=== PATIENT | female | born 1985 | race Caucasian/White ===

== ENCOUNTER 2018-09-27 05:15 | Inpatient (IN) | payer OTHER ==
[2018-09-27 06:03] VITALS: BMI 35.5
[2018-09-27 06:53] LABS: BASO % 0.3 % (0-2.0); EOS % 1.3 % (0-4.5); HEMATOCRIT 31.8 % (32.4-45.2); LYMPH % 26.8 % (8-40); MCH 22.8 pg (25.7-33.7); MCHC 31.5 g/dl (32.0-36.0); MEAN CELL VOLUME 72.5 fl (80-96); MEAN PLT VOLUME 8.7 fl (7.5-11.1); MONO % 10.1 % (3.8-10.2); NEUT % 61.5 % (42.8-82.8); PLATELET COUNT 255 K/MM3 (134-434); RBC 4.39 M/mm3 (3.60-5.2); RDW 15.8 % (11.6-15.6); WHITE BLOOD COUNT 9.7 K/mm3 (4.0-10.0)
[2018-09-27 07:03] LABS: INR 0.91 (0.83-1.09); PROTHROMBIN TIME (PATIENT) 10.7 SEC (9.7-13.0)
[2018-09-27 07:06] LABS: ACTIVATED PTT 27.3 SECONDS (25.2-36.5)
[2018-09-27 07:30] LABS: ANION GAP 9 MMOL/L (8-16); BLOOD UREA NITROGEN 10 mg/dL (7-18); CHLORIDE 106 mmol/L (98-107); CO2 24 mmol/L (21-32); CREATININE 0.5 mg/dL (0.55-1.3); GLUCOSE,RANDOM 73 mg/dL (74-106); POTASSIUM 3.9 mmol/L (3.5-5.1); SODIUM 140 mmol/L (136-145)
--- NOTE | 2018-09-27 17:33 | HP ---
Past Medical History - Primary Care Physician PCP:: Regina Caballero - Admission Chief Complaint: rupture of membranes History of Present Illness: 33 yo P2 AMA EGA 37.5 weeks + GBS and ruptured admitted to LD however refusing IV and IV abs. Pt refusing any therapy that goes into her body. +AFM No bleeding Mild contractions History Source: Patient Limitations to Obtaining History: No Limitations - Past Medical History ...: 4 ...Para: 2 ...Term: 2 ...: 0 ...Spon : 1 ...Induced : 0 ...Multiple Gestation: 0 ...LMP: 02/05/18 ... Weeks Gestation by Dates: 33.3 ...EDC by Dates: 11/12/18 ...EDC by Sono: 10/13/18 - Past Surgical History Past Surgical History: Yes: None Hx Myomectomy: No Hx Transabdominal Cerclage: No - Smoking History Smoking history: Never smoked Have you smoked in the past 12 months: No - Alcohol/Substance Use Hx Alcohol Use: No History of Substance Use: reports: None - Social History History of Recent Travel: No Home Medications - Allergies Allergies/Adverse Reactions: Allergies Allergy/AdvReac Type Severity Reaction Status Date / Time No Known Drug Allergies Allergy Unknown Verified 09/27/18 05:51 shellfish derived Allergy Verified 09/27/18 05:51 shrimp Allergy Intermediate Difficulty Uncoded 09/27/18 05:51 Breathing - Home Medications Home Medications: Ambulatory Orders Prenat 115/Iron Fum/Folic/Dss [ 19 Tablet] 1 tab PO DAILY 09/27/18 Review of Systems - Review of Systems Constitutional: reports: No Symptoms Eyes: reports: No Symptoms HENT: reports: No Symptoms Neck: reports: No Symptoms Cardiovascular: reports: No Symptoms Respiratory: reports: No Symptoms Gastrointestinal: reports: No Symptoms Genitourinary: reports: No Symptoms Breasts: reports: No Symptoms Reported Musculoskeletal: reports: No Symptoms Integumentary: reports: No Symptoms Neurological: reports: No Symptoms Endocrine: reports: No Symptoms Hematology/Lymphatic: reports: No Symptoms Psychiatric: reports: No Symptoms Physical Exam - Maternity Vital Signs: Vital Signs Temperature 98.7 F 09/27/18 17:00 Pulse Rate 85 09/27/18 17:00 Respiratory Rate 20 09/27/18 17:00 Blood Pressure 104/62 09/27/18 17:00 O2 Sat by Pulse Oximetry (%) Constitutional: Yes: Well Nourished, No Distress Eyes: Yes: WNL HENT: Yes: WNL Neck: Yes: WNL Cardiovascular: Yes: WNL, Regular Rate and Rhythm Lungs: Clear to auscultation Breast(s): Yes: WNL - Abdominal Exam/OB Fundal Height: 37 Number of Fetuses: Single Presentation: Vertex Contractions: Yes Monitor Mode: External Category: I - Vaginal Exam/OB Dilatation (cm): FT Amniotic Membrane Status: Ruptured Station: -4 - Physical Exam Musculoskeletal: Yes: WNL Extremities: Yes: WNL Edema: No Psychiatric: Yes: WNL, Alert, Oriented - Labs Lab Results: CBC, BMP 09/27/18 05:50 09/27/18 05:50 Problem List - Problems (1) Spontaneous rupture of amniotic membranes Code(s): [id number] - Assessment/Plan IUP at 37.5 week srom GBS positive - refusing abs pt aware of consequences to baby. did not recieve abs with prevoius deliveries. pt signed consent for refusal of antibiotics Plan continue to observe pt doesnt desire any active management even though GBS positive and ruptured
--- NOTE | 2018-09-27 17:37 | PN ---
Ante-Partal Exam - Subjective Subjective: Pt refused exam found walking in room Mild contractions Vital Signs: Vital Signs Temperature 98.7 F 09/27/18 17:00 Pulse Rate 85 09/27/18 17:00 Respiratory Rate 20 09/27/18 17:00 Blood Pressure 104/62 09/27/18 17:00 O2 Sat by Pulse Oximetry (%) Bleeding: No Headache: No Visual changes: No Right upper quadrant pain: No - Contractions Contractions: Yes Intensity: Mild Monitor Mode: External - Exam during Labor Heart Rate: 120 Variability: Moderate Category: I Monitor Decelerations: None Amniotic Membrane Status: Ruptured - Intrapartum Hemorrhage Risk Risk Score: 0 Risk Level: Low Risk - Assessment/Plan Assessment/Plan: SROM at 430 am Cat 1 GBS positive - refused antibiotics Plan continue observation
[2018-09-27] MEDS ORDERED: BISACODYL 10 MG SUPP.RECT PR PRN (17:40)
[2018-09-27] MEDS ORDERED: WITCH HAZEL 50% (TUCKS) 40 PAD/JAR PAD TP PRN (17:40)
[2018-09-27] MEDS ORDERED: METHYLERGONOVINE MALEATE 0.2 MG/1 ML AMP IM PRN (17:40)
[2018-09-27] MEDS ORDERED: BENZOCAINE 20% 57 GM BOTTLE TP PRN (17:40)
[2018-09-27] MEDS ORDERED: ACETAMINOPHEN 325 MG TABLET (FP) PO PRN (17:40)
[2018-09-27] MEDS ORDERED: IBUPROFEN 600 MG TABLET (FP) PO PRN (17:40)
[2018-09-27] MEDS ORDERED: BENZOCAINE 28 GM HEMORRHOIDAL OINTMENT PR PRN (17:40)
[2018-09-28] MEDS ORDERED: OXYTOCIN 20 UNITS in 0.9% NS 20 UNIT/1,000 ML INFUS.BAG IV ONE (00:39)
[2018-09-28] MEDS ORDERED: LIDOCAINE HCL 1% PRESERVATIVE FREE - 30ML VIAL ONE (00:41)
--- NOTE | 2018-09-28 01:48 | PN ---
Delivery - Delivery Vaginal Delivery: Spontaneous Episiotomy/Laceration: 2nd degree EBL (cc): 250 Delivery, Single - [place] Feeding Plan Initial Plan: Exclusive throughout hospitalization Remarks - Remarks Remarks: Normal spontaneous vaginal delivery of a live infant boy over second degree laceration. Nose / Oropharynx suctioned @ perineum. Cord clamped and cut. Baby handed to nurse. Placenta expelled spontaneously intact. Laceration repaired with 2.0 Chromic.
[2018-09-28] MEDS ORDERED: BENZOCAINE 28 GM HEMORRHOIDAL OINTMENT TP PRN (01:49)
[2018-09-28] MEDS ORDERED: ACETAMINOPHEN 325 MG TABLET (FP) PO PRN (01:49)
[2018-09-28] MEDS ORDERED: METHYLERGONOVINE MALEATE 0.2 MG/1 ML AMP IM PRN (01:49)
[2018-09-28] MEDS ORDERED: BENZOCAINE 20% 57 GM BOTTLE TP PRN (01:49)
[2018-09-28] MEDS ORDERED: IBUPROFEN 600 MG TABLET (FP) PO PRN (01:49)
[2018-09-28] MEDS ORDERED: WITCH HAZEL 50% (TUCKS) 40 PAD/JAR PAD TP PRN (01:49)
[2018-09-28] MEDS ORDERED: BISACODYL 10 MG SUPP.RECT RC PRN (01:49)
[2018-09-28] MEDS ORDERED: OXYTOCIN 20 UNITS in 0.9% NS 20 UNIT/1,000 ML INFUS.BAG IV SCH (02:00)
[2018-09-28 08:26] LABS: BASO % 0.2 % (0-2.0); HEMATOCRIT 32.2 % (32.4-45.2); LYMPH % 5.2 % (8-40); MCH 22.4 pg (25.7-33.7); MCHC 31.2 g/dl (32.0-36.0); MEAN CELL VOLUME 71.9 fl (80-96); MEAN PLT VOLUME 8.8 fl (7.5-11.1); MONO % 8.8 % (3.8-10.2); NEUT % 85.8 % (42.8-82.8); PLATELET COUNT 263 K/MM3 (134-434); RBC 4.48 M/mm3 (3.60-5.2); RDW 15.8 % (11.6-15.6); WHITE BLOOD COUNT 24.5 K/mm3 (4.0-10.0)
[2018-09-28] MEDS: PRENATAL VITAMINS W/ FOLIC ACID TABLET (FP) PO SCH (09:44)
[2018-09-28] MEDS: FERROUS SO4 325 MG TABLET (FP) PO SCH ×2 (09:44→23:15)
[2018-09-28 12:39] LABS: ANISOCYTOSIS 1+; MACROCYTOSIS 0; PLATELET ESTIMATE NORMAL
[2018-09-28 22:51] LABS: BASO % 0.2 % (0-2.0); EOS % 0.6 % (0-4.5); HEMATOCRIT 33.6 % (32.4-45.2); HEMOGLOBIN 10.3 GM/dL (10.7-15.3); MCH 22.3 pg (25.7-33.7); MCHC 30.6 g/dl (32.0-36.0); MEAN CELL VOLUME 72.9 fl (80-96); MEAN PLT VOLUME 8.8 fl (7.5-11.1); MONO % 7.4 % (3.8-10.2); NEUT % 78.8 % (42.8-82.8); PLATELET COUNT 240 K/MM3 (134-434); RBC 4.61 M/mm3 (3.60-5.2); RDW 16.3 % (11.6-15.6); WHITE BLOOD COUNT 20.4 K/mm3 (4.0-10.0)
[2018-09-28 23:24] LABS: ANISOCYTOSIS 1+; MACROCYTOSIS 1+
[2018-09-28 23:25] LABS: PLATELET ESTIMATE NORMAL
--- NOTE | 2018-09-29 01:58 | PN ---
Progress Note (short form) - Note Progress Note: Pt informed of high WBC last night of 24,000 repeat 20K pt had refused antibiotics will repeat cbc in am if still high will discuss giving abs again with patient Problem List - Problems (1) Spontaneous rupture of amniotic membranes Code(s): [id number] -
[2018-09-29 07:50] LABS: BASO % 0.3 % (0-2.0); HEMOGLOBIN 9.6 GM/dL (10.7-15.3); LYMPH % 14.8 % (8-40); MCH 22.5 pg (25.7-33.7); MCHC 31.1 g/dl (32.0-36.0); MEAN CELL VOLUME 72.5 fl (80-96); MEAN PLT VOLUME 8.7 fl (7.5-11.1); NEUT % 76.9 % (42.8-82.8); PLATELET COUNT 274 K/MM3 (134-434); RBC 4.27 M/mm3 (3.60-5.2); WHITE BLOOD COUNT 17.5 K/mm3 (4.0-10.0)
[2018-09-29] MEDS: FERROUS SO4 325 MG TABLET (FP) PO SCH ×2 (09:49→23:03)
[2018-09-29] MEDS: PRENATAL VITAMINS W/ FOLIC ACID TABLET (FP) PO SCH (09:49)
[2018-09-29] MEDS ORDERED: SENNOSIDES/DOCUSATE COMBO (SENNA PLUS) TABLET (UD) PO PRN (22:00)
--- NOTE | 2018-09-30 08:59 | DS ---
Physical Exam-GENERAL [employer] Vital Signs: Vital Signs Temperature 98.2 F 09/29/18 22:00 Pulse Rate 92 H 09/29/18 22:00 Respiratory Rate 20 09/29/18 22:00 Blood Pressure 110/70 09/29/18 22:00 O2 Sat by Pulse Oximetry (%) 97 09/28/18 03:30 Constitutional: Yes: Well Nourished Labs: CBC, BMP 09/29/18 06:48 09/27/18 05:50 Delivery - Delivery Vaginal Delivery: Spontaneous Type of Anesthesia: None Episiotomy/Laceration: 2nd degree EBL (cc): 250 Delivery, Single - Stages of Labor Date 1st Stage Initiatied: 09/27/18 Time 1st Stage Initiated: 04:30 Date 2nd Stage Initiated: 09/28/18 Time 2nd Stage Initiated: 01:10 Date of Delivery: 09/28/18 Time of Delivery: 01:16 Time Placenta Delivered: 01:18 Placenta: Yes: Spontaneous - Condition of Infant 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 Pt was GBS positive, refused antibiotics. Post had leukocytosis up to 20.4, on repeat was resolving. No fevers, asymptomatic. Pt was otherwise stable and discharged home on post day 2. Condition: Stable - Instructions Diet, Activity, Other Instructions: Physical activity Resume your normal everyday activity as tolerated no heavy lifting or exercise until seen by your surgeon. You may walk unlimited [place]en of and climb stairs. You may resume driving the car when you feel safe and comfortable behind the wheel. No sexual activity as instructed. Wound care If you have a bandage, leave it on, and keep dry for 48-72 hours. After that time discard the outer bandage. If they are tapes on the skin under the out of bandage leave them in place. They will peel off in the next 7 to 10 days. Do Not Peel them off. You may shower the day after surgery. If there are tapes present on the skin, you may shower over them. Diet There are no dietary restrictions. Eat healthy, high-fiber foods. Drink 6 to 8 glasses of liquid each day. This will assist in keeping your bowels are regular. Pain management You may take Tylenol or acetaminophen or Ibuprofen (for example, Motrin, Advil etc.) from my pain prescription medication is ordered should be taken as prescribed for moderate to severe pain. Call MD for any of the following: Severe pain not relieved by medication Fever of 101 or higher Excessive bleeding or drainage on dressing Inability to urinate Disposition: HOME - Home Medications Comprehensive Discharge Medication List: Ambulatory Orders Prenat 115/Iron Fum/Folic/Dss [ 19 Tablet] 1 tab PO DAILY 09/27/18 Ibuprofen [Motrin -] 600 mg PO QID PRN #28 tablet 09/30/18
[2018-09-30 09:14] VITALS: BP 106/72; PULSE 81; TEMP 98.3
[2018-09-30] MEDS: FERROUS SO4 325 MG TABLET (FP) PO SCH (09:33)
[2018-09-30] MEDS: PRENATAL VITAMINS W/ FOLIC ACID TABLET (FP) PO SCH (09:33)
== END 2018-09-30 18:00 | disposition home or self-care (01) | DRG 807 ==
LOC: JLDR 05:15 → J3W 09-28 03:10
PROVIDERS: ADMIT Obstetrics & Gynecology; ATTEND Obstetrics & Gynecology
PROC: 0KQM0ZZ Repair Perineum Muscle, Open Approach (ICD-10-PCS; principal; 2018-09-28)
PROC: 10E0XZZ Delivery of Products of Conception, External Approach (ICD-10-PCS; 2018-09-28)
DX: O99.824 Streptococcus B carrier state complicating childbirth (principal); Z37.0 Single live birth; O70.1 Second degree perineal laceration during delivery; Z3A.37 37 weeks gestation of pregnancy
CPT/HCPCS: 36415; 59409; 80048; 85025; 85610; 85730; 86593; 86850; 86900; 86901; 87389